=== PATIENT | female | born 1965 | race Caucasian/White ===

== ENCOUNTER 2023-07-06 09:59 | Outpatient (AMB) | payer OTHER, SELFPAY ==
--- NOTE | 2023-07-06 09:59 | MHC.OFFWIV ---
Intake Vital Signs 07/06/23 10:10 Height 5 ft 7 in Weight 165 lb BMI 25.8 BP 150/72 H Blood Pressure Location Lt brachial Position Sitting Pulse 97 Pulse Source Pulse Oximeter Pulse Oximetry (%) 100 Oxygen Delivery Method Room Air Intake Visit Reasons: EST/uti(lobby) Intake Note: Pt is here c/o frequent urination accompanied by a burning sensation for the past three weeks. Patient Tobacco Use Status: Current everyday Tobacco user Allergies No Known Allergies Allergy (Verified 07/06/23 10:10) Do you need a note to return to daycare/school/sports/work: Yes HPI HPI Comments History of Present Illness Details Montserrat presents to [facility] with UTI She said ongoing x 3 weeks Worse recently No hematuria +dysuria +frequency and urgency No back or abdominal pain Tried Azo which helped a little No fevers or chills She also takes Vumerity for MS PFSH Social History Patient Tobacco Use Status: Current everyday Tobacco user Review of Systems Const Denies chills and Denies fever(s) GI Reports abdominal pain (minimal suprapubic) Denies hematuria, Reports dysuria, Denies urinary incontinence, Reports urinary hesitancy and Reports urinary urgency Musc Denies back pain Physical Exam Vital Signs: Last Vital Signs Pulse 97 07/06/23 10:10 BP 150/72 H 07/06/23 10:10 Pulse Ox 100 07/06/23 10:10 Oxygen Delivery Method Room Air 07/06/23 10:10 BMI result Body Mass Index 25.8 General: Non-toxic, NAD. Speaking full sentences. Skin: Warm dry throughout Eye: EOMI HENT: Airway patent. Uvula midline. No pharyngeal erythema or edema. No CHAIN CARRIER. Bilateral canals clear. TM non-erythematous, non-bulging. No TM perforation or hemotympanum noted. Respiratory: No respiratory distress Abdominal: No CVAT. Minimal suprapubic tenderness MSK: Full ROM extremities. Neurology: A/O. No aphasia or facial droop. Gait without abnormality Psych: Good mood and affect Results AMB Urinalysis, Automated UA Leukoctes 15 Renetta/uL Last Edit by Martha Mckeon CMA on 07/06/23 10:17 UA Nitrite Positive Last Edit by Martha Mckeon CMA on 07/06/23 10:17 UA Urobilinogen 0.2 mg/dL Last Edit by Martha Mckeon CMA on 07/06/23 10:17 UA Protein 0 mg/dL Last Edit by Martha Mckeon CMA on 07/06/23 10:17 UA pH 6.0 Last Edit by Martha Mckeon, ARYAN on 07/06/23 10:17 UA Blood 0 Cassius/uL Last Edit by Martha Mckeon, ARYAN on 07/06/23 10:17 UA Specific [place] 1.015 Last Edit by Martha Mckeon CMA on 07/06/23 10:17 UA Ketone Positive Last Edit by Martha Mckeon, ARYAN on 07/06/23 10:17 UA Bilirubin 0 mg/dL Last Edit by Martha Mckeon CMA on 07/06/23 10:17 UA Glucose 0 mg/dL Last Edit by Martha Mckeon CMA on 07/06/23 10:17 Assessment & Plan Assessment & Plan (1) Urinary tract infection: Code(s): N39.0 - Urinary tract infection, site not specified Qualifiers: Urinary tract infection type: acute cystitis Hematuria presence: without hematuria Qualified Code(s): N30.00 - Acute cystitis without hematuria Plan: Patient seen and evaluated. U/a: + leuks, nitrates Keflex to pharmacy Increase fluids Discussed completion of script in full Patient gave verbal understanding and had no additional questions or concerns at time of discharge All questions answered Orders: Orders AMB Urinalysis Automated Today Z13.9 - Encounter for screening, unspecified Medications: New cephalexin 500 mg PO BID 14 caps 0RF Coding Level of Care Code Est Pt Level 3 (31331) Diagnoses Acute cystitis without hematuria N30.00 Urinary tract infection type: acute cystitis Hematuria presence: without hematuria
[2023-07-06 10:10] VITALS: BP 150/72; PULSE 97; O2SAT 100; BMI 25.8
== END 2023-07-06 11:48 | disposition home or self-care (01) ==
PROVIDERS: PCP Hospitalist; Visit Provider Physician Assistant
DX: N30.00 Acute cystitis without hematuria (principal)
CPT/HCPCS: 81003; 99213